=== PATIENT | female | born 1975 | race American Indian/Alaskan Native ===

== ENCOUNTER 2019-06-12 09:05 | Emergency (ER) | payer OTHER ==
[2019-06-12 09:11] VITALS: BP 133/79
[2019-06-12] MEDS ORDERED: IBUPROFEN 800 MG TAB PO ONE (12:19)
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
== END 2019-06-12 13:42 | disposition home or self-care (01) ==
LOC: ED 09:05
DX: S29.012A Strain of muscle and tendon of back wall of thorax, initial encounter (principal); S13.4XXA Sprain of ligaments of cervical spine, initial encounter; Z79.899 Other long term (current) drug therapy; Z91.013 Allergy to seafood; Z88.2 Allergy status to sulfonamides; V49.49XA Driver injured in collision with other motor vehicles in traffic accident, initial encounter; Y93.89 Activity, other specified; Y92.488 Other paved roadways as the place of occurrence of the external cause; Y99.8 Other external cause status
CPT/HCPCS: 72040; 72070; 99283

== ENCOUNTER 2020-11-22 18:39 | Emergency (ER) | payer SELFPAY ==
[2020-11-22 19:18] VITALS: BP 130/73
[2020-11-22] MEDS ORDERED: ONDANSETRON 4 MG/2 ML INJ IV ONE (20:13)
[2020-11-22] MEDS ORDERED: SODIUM CHLORIDE 0.9% 1000 ML 1,000 ML IV ONE (20:13)
[2020-11-22] MEDS ORDERED: FAMOTIDINE 20 MG/2 ML INJ IV ONE (20:13)
[2020-11-22] MEDS ORDERED: MORPHINE 4 MG/1 ML INJ IV ONE (20:13)
--- NOTE | 2020-11-22 20:41 | Emergency Department Report ---
ED Abdominal Pain HPI - General Chief Complaint: Abdominal Pain Stated Complaint: LOWER RT AB PAIN Source: patient Mode of arrival: Ambulatory Limitations: No Limitations - History of Present Illness Initial Comments: Patient is a A2 45-year-old -I[place] female with no past medical history presents to the ED with complaint of acute onset persistent severe right lower quadrant abdominal pain that radiates to the lower abdomen diffusely with persistent nausea and diarrhea for the last 5 days. Patient states that the pain has worsened especially in the last 3 days. Patient states that she initially thought that she had COVID-19 viral infection and proceeded and got tested for the same but the test results were negative. Patient denies vomiting, dysuria, urinary frequency and urgency, vaginal bleeding, vaginal discharge, dyspareunia, fever, chills, chest pain or shortness of breath, low back pain, cough, sore throat, nasal and sinus congestion or headache, dizziness and syncope. MD Complaint: abdominal pain (Right lower quadrant pain), other (Nausea and diarrhea) -: Sudden, days(s) (2) Location: RLQ, suprapubic Radiation: RLQ, suprapubic Migration to: no migration Severity: severe Severity scale (0 -10): 9 Quality: aching, sharp Consistency: constant Improves With: nothing Worsens With: movement Context: other (Unknown) Associated Symptoms: denies other symptoms, nausea, diarrhea, anorexia. denies: vomiting, fever, chills, constipation, dysuria, hematemesis, hematochezia, melena, hematuria, syncope, other - Related Data LMP Date: 11/10/20 Previous Rx's Medication Instructions Recorded Last Taken Type Cyclobenzaprine [Flexeril] 10 mg PO QHS PRN #10 tablet 06/12/19 Unknown Rx Naproxen 500 mg PO Q12H PRN #20 tablet 06/12/19 Unknown Rx Ibuprofen [Motrin] 800 mg PO Q8HR PRN #30 tablet 11/23/20 Unknown Rx Ondansetron [Zofran Odt] 4 mg PO Q8HR PRN #20 tab.rapdis 11/23/20 Unknown Rx traMADoL [Ultram] 50 mg PO Q6HR PRN #12 tablet 11/23/20 Unknown Rx Allergies Allergy/AdvReac Type Severity Reaction Status Date / Time shellfish derived Allergy Hives Verified 11/22/20 19:19 Sulfa (Sulfonamide Allergy Hives Verified 11/22/20 19:19 Antibiotics) ED Review of Systems ROS: Stated complaint: LOWER RT AB PAIN Other details as noted in HPI Constitutional: denies: chills, fever Eyes: denies: eye pain, eye discharge, vision change ENT: denies: ear pain, throat pain Respiratory: denies: cough, shortness of breath, wheezing Cardiovascular: denies: chest pain, palpitations Endocrine: no symptoms reported Gastrointestinal: abdominal pain (RLQ Abdominal pain), nausea, diarrhea. denies: vomiting Genitourinary: denies: urgency, dysuria, discharge Musculoskeletal: denies: back pain, joint swelling, arthralgia Skin: denies: rash, lesions Neurological: denies: headache, weakness, paresthesias Psychiatric: denies: anxiety, depression Hematological/Lymphatic: denies: easy bleeding, easy bruising ED Past Medical Hx - Past Medical History Additional medical history: Deg disc disease, herniated disk, chronic lower back pain. - Social History Smoking Status: Never Smoker Substance Use Type: None - Medications Home Medications: Home Medications Medication Instructions Recorded Confirmed Last Taken Type Cyclobenzaprine [Flexeril] 10 mg PO QHS PRN #10 tablet 06/12/19 Unknown Rx Naproxen 500 mg PO Q12H PRN #20 tablet 06/12/19 Unknown Rx Ibuprofen [Motrin] 800 mg PO Q8HR PRN #30 tablet 11/23/20 Unknown Rx Ondansetron [Zofran Odt] 4 mg PO Q8HR PRN #20 tab.rapdis 11/23/20 Unknown Rx traMADoL [Ultram] 50 mg PO Q6HR PRN #12 tablet 11/23/20 Unknown Rx ED Physical Exam - General Limitations: No Limitations General appearance: alert, in no apparent distress - Head Head exam: Present: atraumatic, normocephalic, normal inspection - Eye Eye exam: Present: normal appearance, PERRL, EOMI Pupils: Present: normal accommodation - ENT ENT exam: Present: normal exam, normal orophraynx, mucous membranes moist, TM's normal bilaterally, normal external ear exam - Neck Neck exam: Present: normal inspection, full ROM. Absent: tenderness - Respiratory Respiratory exam: Present: normal lung sounds bilaterally. Absent: respiratory distress, wheezes, rales, chest wall tenderness, accessory muscle use, decreased breath sounds, prolonged expiratory - Cardiovascular Cardiovascular Exam: Present: regular rate, normal rhythm, normal heart sounds. Absent: systolic murmur, diastolic murmur, rubs, gallop - GI/Abdominal GI/Abdominal exam: Present: soft, tenderness (Palpable severe right lower quadrant rebound tenderness with guarding), guarding, rebound, normal bowel sounds. Absent: hyperactive bowel sounds, hypoactive bowel sounds, organomegaly, mass, bruit - Bi-manual exam: Present: other (Pelvic exam deferred at this time) - Extremities Exam Extremities exam: Present: normal inspection, full ROM, normal capillary refill - Back Exam Back exam: Present: normal inspection, full ROM. Absent: tenderness, CVA tenderness (R), CVA tenderness (L), muscle spasm, paraspinal tenderness, vertebral tenderness - Neurological Exam Neurological exam: Present: alert, oriented X3, CN II-XII intact, normal gait, reflexes normal - Psychiatric Psychiatric exam: Present: normal affect, normal mood - Skin Skin exam: Present: warm, dry, intact, normal color. Absent: rash ED Course Vital Signs 11/22/20 19:17 Temperature 98.2 F Pulse Rate 67 Respiratory 16 Rate Blood Pressure 130/73 [Right] O2 Sat by Pulse 100 Oximetry ED Medical Decision Making - Lab Data Result diagrams: 11/22/20 20:50 11/22/20 20:50 - Radiology Data Radiology results: report reviewed, image reviewed [facility] [address] [place] [address] Cat Scan Report Signed Patient: TOYA GARCIA MR#: [id number] : 1975 Acct:[id number] Age/Sex: 45 / F ADM Date: 11/22/20 Loc: ED Attending Dr: Ordering Physician: CHANDANA HENSON Date of Service: 11/22/20 Procedure(s): CT abdomen pelvis wo con Accession Number(s): [id number] cc: CHANDANA HENSON CT ABDOMEN AND PELVIS WITHOUT CONTRAST INDICATION: Severe RLQ pain: N/V/D CONTRAST: Without IV COMPARISON: None available. All CT scans at this location are performed using CT dose reduction for ALARA by means of automated exposure control. FINDINGS: Mild bibasilar atelectatic changes are seen. No pneumoperitoneum is noted. No urinary tract calculi or evidence of obstruction are seen. Gallbladder and bile ducts appear within normal limits. No abdominal masses are seen. No lymphadenopathy is noted. No evidence of bowel obstruction is seen. Appendix appears within normal limits. Prominent uterus is seen with what appear to be multiple leiomyomata. No adnexal masses are seen. Only a small amount of nonspecific pelvic free fluid is seen. No inflammatory changes are noted. IMPRESSION: No acute abnormalities are seen Signer Name: Jhon Jimenez MD Signed: 11/22/2020 11:13 PM Workstation Name: [id number] Transcribed By: TIANNA Dictated By: Jhon Jimenez MD Electronically Authenticated By: Jhon Jimenez MD Signed Date/Time: 11/22/202312 DD/ 08 TD/TT: - Medical Decision Making This is a A2 45-year-old -I[place] female with no past medical history presents to the ED with complaint of acute onset persistent severe right lower quadrant abdominal pain that radiates to the lower abdomen diffusely with persistent nausea and diarrhea for the last 5 days. Patient states that the pain has worsened especially in the last 3 days. Patient states that she initially thought that she had COVID-19 viral infection and proceeded and got tested for the same but the test results were negative. In the ED, patient is alert and oriented x3 and is not in any distress. Patient however appears to be in significant pain, barely tolerating physical exam. Patient was treated for pain in the ED and also given antiemetics in the ED. Patient also received normal saline 1 L IV bolus x1. The abdomen pelvis CT scan without contrast showed no acute abnormalities including an normal appendix. There is however prominent uterus is seen with what appear to be multiple leiomyomata. No adnexal masses are seen. On reevaluation, patient's pain is well controlled medications. Patient was therefore discharged home on pain medications and advised to follow-up with her [employer] physician for further evaluation in 7 to 10 days. Patient was also advised return to the ED immediately if symptoms get worse. - Differential Diagnosis Appendicitis; ovarian cyst; ectopic ; TOA colitis; Kidney stones Critical care attestation.: If time is entered above; I have spent that time in minutes in the direct care of this critically ill patient, excluding procedure time. ED Disposition Clinical Impression: Acute abdominal pain in right lower quadrant, Nausea, vomiting and diarrhea Uterine fibroid Qualifiers: Uterine leiomyoma location: intramural Qualified Code(s): D25.1 - Intramural leiomyoma of uterus Disposition: HOME / SELF CARE / HOMELESS Is pt being admited?: No Does the pt Need Aspirin: No Condition: Stable Instructions: Abdominal Pain (ED), Uterine Fibroids, [id number], Abdominal Pain, Adult, [id number], Nausea and Vomiting, Adult, [id number], Diarrhea, Adult, [id number] Additional Instructions: All lab test results were reviewed and are all nonactionable. Abdomen pelvis CT scan without contrast showed no acute abnormalities including normal appendix, there was however prominent uterus is seen with what appear to be multiple leiomyomata. No adnexal masses are seen. Your symptoms are likely due to uterine fibroids causing severe pain. Therefore take medications as needed for pain with food, drink plenty of fluids and follow-up with your primary care physician in 7 to 10 days for reevaluation. Return to the ED immediately if symptoms get worse. Prescriptions: Ibuprofen [Motrin] 800 mg PO Q8HR PRN #30 tablet PRN Reason: Pain , Severe (7-10) traMADoL [Ultram] 50 mg PO Q6HR PRN #12 tablet PRN Reason: Pain Ondansetron [Zofran Odt] 4 mg PO Q8HR PRN #20 tab.rapdis PRN Reason: Nausea Referrals: [facility] [Provider Group] - 3-5 Days SOLOMON ZIMMER MD [Staff Physician] - 3-5 Days Time of Disposition: 01:15 Print Language: CHINESE
[2020-11-22 21:19] LABS: Basophils # (Auto) 0.1 K/mm3 (0.0-0.1); Basophils % (Auto) 0.9 % (0.0-1.8); Eosinophils # (Auto) 0.4 K/mm3 (0.0-0.4); Eosinophils % (Auto) 3.8 % (0.0-4.3); Hematocrit 37.8 % (30.3-42.9); Hemoglobin 12.8 gm/dl (10.1-14.3); Lymphocytes # (Auto) 2.6 K/mm3 (1.2-5.4); Lymphocytes % (Auto) 27.1 % (13.4-35.0); Mean Corpuscular HGB Conc 34 % (30-34); Mean Corpuscular Volume 86 fl (79-97); Monocytes # (Auto) 0.7 K/mm3 (0.0-0.8); Monocytes % (Auto) 6.9 % (0.0-7.3); Platelet Count 339 K/mm3 (140-440); Red Blood Count 4.41 M/mm3 (3.65-5.03); Red Cell Distribution Width 13.2 % (13.2-15.2)
[2020-11-22 21:33] LABS: Alanine Aminotransferase 12 units/L (7-56); Albumin 3.9 g/dL (3.9-5); BUN/Creatinine Ratio 6; Blood Urea Nitrogen 5 mg/dL (7-17); Calcium 9.3 mg/dL (8.4-10.2); Hemolysis Index 9
--- NOTE | 2020-11-22 23:18 | Cat Scan Report ---
CT ABDOMEN AND PELVIS WITHOUT CONTRAST INDICATION: Severe RLQ pain: N/V/D CONTRAST: Without IV COMPARISON: None available. All CT scans at this location are performed using CT dose reduction for ALARA by means of automated e xposure control. FINDINGS: Mild bibasilar atelectatic changes are seen. No pneumoperitoneum is noted. No urinary tract calculi or evidence of obstruction are seen. Gallbladder and bile ducts appear within normal limits. No abdominal masses are seen. No lymphadenopathy is noted. No evidence of bowel obstruction is seen. Appendix appears within normal limits. Prominent uterus is seen with what appear to be multiple leio myomata. No adnexal masses are seen. Only a small amount of nonspecific pelvic free fluid is seen. No inflammatory changes are noted. IMPRESSION: No acute abnormalities are seen Signer Name: Jhon Jimenez MD Signed: 11/22/2020 11:13 PM Workstation Name: [id number]
[2020-11-23 00:43] LABS: Bilirubin,Urine NEG (Negative); Blood,Urine NEG (Negative); Color,Urine Yellow (Yellow); Protein,Urine <15 mg/dL mg/dL (Negative); Urobilinogen,Urine < 2.0 mg/dL (<2.0)
[2020-11-23 00:50] LABS: WBC,Urine < 1.0 /HPF (0.0-6.0)
== END 2020-11-23 03:35 | disposition home or self-care (01) ==
LOC: ED 18:39
DX: R10.31 Right lower quadrant pain (principal); R11.2 Nausea with vomiting, unspecified; R19.7 Diarrhea, unspecified; Z88.2 Allergy status to sulfonamides; Z91.013 Allergy to seafood; Z79.899 Other long term (current) drug therapy
CPT/HCPCS: 36415; 74176; 80053; 81001; 83690; 84703; 85025; 96361; 96374; 96375; 99284; J2270; J2405; J7030